=== PATIENT | female | born 1950 | race Caucasian/White ===

== ENCOUNTER 2019-12-02 10:34 | Outpatient (CLI) | payer MEDICARE, SELFPAY ==
[2019-12-02 11:02] LABS: Basophils Percent Auto 0.6 % (0.2-1.2); Eosinophils Absolute Auto 0.1 K/mm3 (0-0.3); Hematocrit 45.2 % (37.0-47.0); Hemoglobin 14.5 g/dL (12.0-15.0); Immature Granulocyte Absolute 0.01 K/mm3 (0.00-0.031); Immature Granulocyte Percent A 0.2 % (0-0.5); Immature Platelet Fraction Pct 4.2 % (0.9-11.2); Lymphocytes Absolute Auto 1.38 K/mm3 (0.9-3.2); Lymphocytes Percent Auto 27.8 % (18.3-44.2); Mean Corpuscular HGB Conc 32.1 g/dl (32-36); Mean Corpuscular Hemoglobin 30.2 pg (26-34); Mean Corpuscular Volume 94.2 fl (80-100); Mean Platelet Volume 11.1 fl (7.4-10.4); Monocytes Absolute Auto 0.6 K/mm3 (0.1-0.6); Monocytes Percent Auto 11.9 % (2.6-8.5); Neutrophils Absolute Auto 2.9 K/mm3 (1.3-6.7); Neutrophils Percent Auto 57.5 % (45.5-73.1); Platelet Count Result 249 k/mm3 (150-375)
[2019-12-02 16:03] LABS: Alanine Aminotransferase 17 U/L (4-35); Albumin Level 4.3 g/dL (3.5-5.1); Alkaline Phosphatase 84 U/L (38-126); Aspartate Amino Transferase 29 U/L (14-36); Bilirubin,Total 0.4 mg/dL (0.2-1.3); Blood Urea Nitrogen 14 mg/dL (7-17); Calcium 9.4 mg/dL (8.4-10.2); Carbon Dioxide 26 mmol/L (22-30); Chloride 103 mmol/L (98-107); Estimated Glomerular Filt Rate > 60; Glucose 85 mg/dL (65-105); Potassium 4.3 mmol/L (3.4-5.0); Sodium 135 mmol/L (137-145)
[2019-12-02 16:25] LABS: Folic Acid 16.9 ng/mL (2.76->20)
== END 2019-12-02 10:35 | disposition home or self-care (01) ==
LOC: ANHLAB 10:36
PROVIDERS: PCP Family Medicine; Visit Provider Physician Assistant
DX: R53.83 Other fatigue (principal); E03.9 Hypothyroidism, unspecified
CPT/HCPCS: 36415; 80053; 82607; 82746; 84443; 85025; 85055

== ENCOUNTER 2020-01-12 10:50 | Outpatient (CLI) | payer MEDICARE, SELFPAY ==
[2020-01-12 11:31] LABS: Blood Urea Nitrogen 15 mg/dL (7-17); Calcium 9.7 mg/dL (8.4-10.2); Carbon Dioxide 29 mmol/L (22-30); Chloride 101 mmol/L (98-107); Estimated Glomerular Filt Rate > 60; Glucose 108 mg/dL (65-105); Potassium 4.1 mmol/L (3.4-5.0); Sodium 137 mmol/L (137-145)
[2020-01-12 12:32] LABS: Thyroid Stimulating Hormone 0.143 uIU/mL (0.465-4.680)
== END 2020-01-12 10:51 | disposition home or self-care (01) ==
PROVIDERS: PCP Family Medicine; Visit Provider Physician Assistant
DX: E03.9 Hypothyroidism, unspecified (principal); E87.6 Hypokalemia
CPT/HCPCS: 36415; 80048; 84443

== ENCOUNTER 2020-02-09 16:01 | Outpatient (CLI) | payer MEDICARE, SELFPAY | END 2020-02-09 16:02 | disposition home or self-care (01) | PROVIDERS: PCP Family Medicine; Visit Provider Physician Assistant | DX: E03.9 Hypothyroidism, unspecified (principal) | CPT/HCPCS: 36415; 84443 ==

== ENCOUNTER 2020-03-31 16:09 | Emergency (ER) | payer MEDICARE, SELFPAY ==
[2020-03-31 16:26] VITALS: BP 150/69; PULSE 85; RESP 20; TEMP 37.3; O2SAT 99
--- NOTE | 2020-03-31 16:39 | ED.FEMALEGU ---
HPI - Female Genitourinary General Chief complaint: Urogenital-Female Stated complaint: uti Time Seen by Provider: 03/31/20 16:37 Source: patient Mode of arrival: ambulatory Limitations: no limitations History of Present Illness HPI Narrative: Patient is a 69-year-old female who presents with complaints of dysuria, incontinence, frequency and urgency x1 week. Patient denies visible hematuria. Patient reports lower back pain starting today. She reports intermittently taking Tylenol and increasing fluid intake without relief. She denies flank pain, fever, nausea or vomiting. MD elicited complaint: UTI Related Data Home Medications Medication Instructions Recorded Confirmed duloxetine 60 mg capsule,delayed 60 mg PO DAILY cap 01/13/20 03/31/20 release Allergies Allergy/AdvReac Type Severity Reaction Status Date / Time Iodinated Contrast Media Allergy Unknown Hives Verified 02/10/20 14:16 Penicillins Allergy Unknown Hives Verified 02/10/20 14:16 Sulfa (Sulfonamide Allergy Unknown rash and Verified 02/10/20 14:16 Antibiotics) eyes swelling Review of Systems Review of Systems: Narrative: CONSTITUTIONAL: Denies fever, chills, or sweats. EYES: Denies visual changes, redness, or discharge. ENT: Denies rhinorrhea, congestion, sore throat, or otalgia. CARDIOVASCULAR: Denies chest pain, palpitations, or edema. RESPIRATORY: Denies cough or dyspnea. GASTROINTESTINAL: Denies abdominal pain, nausea, vomiting, or diarrhea. GENITOURINARY: Reports dysuria, frequency, urgency and incontinence SKIN: Denies rash or itching. MUSCULOSKELETAL: Denies back pain, joint pain, or myalgia. NEUROLOGIC: Denies headache, numbness, dizziness, or weakness. PSYCHIATRIC: Denies anxiety or depression. [facility] Past Medical History Medical History (Updated 03/31/20 @ 16:46 by KATERIN Felix) Elevated blood pressure reading in office without diagnosis of hypertension Essential hypertension Neuropathy Surgical History Surgical History (Updated 03/31/20 @ 16:42 by KATERIN Felix) No significant past surgical history Family History Family History Mother Hypertension Family history of malignant neoplasm of cervix Sibling Hypertension Social History Social History Smoking status: Never smoker Alcohol intake: current Substance use: never Substance use type: does not use Gender identity (if verbalized by the patient): Female Exam Narrative: Exam Narrative: GENERAL: Well-appearing, well-nourished, and in no acute distress. HEAD: Normocephalic, atraumatic. EYES: EOMI. No redness or drainage. CHEST: No respiratory distress. Clear to auscultation. HEART: Regular rate and rhythm. No murmur appreciated. Normal peripheral pulses. GI: Soft, nontender without rebound, or guarding. No distention. Bowel sounds normal in all quadrants. NEURO: No focal deficits. Alert and oriented x3. Gait steady. PSYCH: Normal affect. No signs of depression or anxiety. Course Vital Signs Vital signs: Vital Signs Temperature 37.3 C 03/31/20 16:26 Pulse Rate 85 03/31/20 16:26 Respiratory Rate 20 03/31/20 16:26 Blood Pressure 150/69 H 03/31/20 16:26 Pulse Oximetry 99 03/31/20 16:26 Temperature 37.3 C 03/31/20 16:26 Pulse Rate 85 03/31/20 16:26 Respiratory Rate 20 03/31/20 16:26 Blood Pressure 150/69 H 03/31/20 16:26 Pulse Oximetry 99 03/31/20 16:26 Reviewed. Patient has been instructed to follow-up with her PCP regarding her blood pressure. MDM - Female Genitourinary MDM Narrative Medical decision making narrative: Patient's urine is positive for nitrates, leukocytes and blood. Patient to be treated for UTI at this time, urine culture to be sent. Patient instructed to follow-up with her PCP in 3 to 5 days if symptoms persist. Patient is stable for discharge to home wit
== END 2020-03-31 16:47 | disposition home or self-care (01) ==
PROVIDERS: Emergency Provider Nurse Practitioner; PCP Family Medicine
DX: N39.0 Urinary tract infection, site not specified (principal); G62.9 Polyneuropathy, unspecified; I10 Essential (primary) hypertension
CPT/HCPCS: 81003; 87077; 87086; 87088; 87186; 99213; G0463

== ENCOUNTER 2020-04-09 12:46 | Emergency (ER) | payer MEDICARE, SELFPAY ==
[2020-04-09 13:05] VITALS: BP 139/82; PULSE 86; RESP 20; TEMP 37.1; O2SAT 98
[2020-04-09] MEDS: KETOROLAC (*BKC) 60 MG/2 ML VIAL IM (13:47)
--- NOTE | 2020-04-09 13:48 | ED.FEMALEGU ---
HPI - Female Genitourinary General Chief complaint: Urogenital-Female Stated complaint: uti Source: patient and RN notes reviewed Limitations: no limitations History of Present Illness HPI Narrative: The patient, non-smoker/nondrinker nursing staff member, presents with right side pain. Patient states she was seen for a UTI about a week ago. She was treated with first generation cephalosporin, for culture proven E. coli pansensitive infection. She first had improvement and was seen by her PMD , but now ~2 days after ending the med course, complains of continued urinary frequency, flank pain, urgency and mild end stream dysuria.. No hematuria seen [but she did at onset], fever, vomiting/diarrhea, vaginal discharge. 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 This required extended antibiotic dosing, then. Available POC testing shows 1+ leukocytosis, 2+ microscopic hematuria, 3+ protein, nitrate negative . Discussed will provide second course of antibiotics, and after discussing with her PMD, same-day imaging to be sent to her PMD for same day follow-up. Patient declines go to hospital ER. Related Data Home Medications Medication Instructions Recorded Confirmed duloxetine 60 mg capsule,delayed 60 mg PO DAILY cap 01/13/20 04/09/20 release Allergies Allergy/AdvReac Type Severity Reaction Status Date / Time Iodinated Contrast Media Allergy Unknown Hives Verified 04/09/20 13:06 Penicillins Allergy Unknown Hives Verified 04/09/20 13:06 Sulfa (Sulfonamide Allergy Unknown rash and Verified 04/09/20 13:06 Antibiotics) eyes swelling Review of Systems Review of Systems: Narrative: General/Constitutional: No weight loss,fever Eyes: N0: Redness,discharge Ears/Nose/Throat: No: Epistaxis,ear discharge Respiratory: Denies: Hemoptysis Gastrointestinal: No Vomiting, Bleeding-rectal Skin: No Lumps, eruption Neurologic: No Focal Weakness,Sz Hematologic: Denies: Petechiae/Purpura Psychiatric: No: Suicida ideationl All Other Systems: Reviewed and Negative [facility] Past Medical History Medical History Elevated blood pressure reading in office without diagnosis of hypertension Essential hypertension Neuropathy Surgical History Surgical History No significant past surgical history Family History Family History Mother Hypertension Family history of malignant neoplasm of cervix Sibling Hypertension Social History Social History Smoking status: Never smoker Alcohol intake: current Substance use: never Substance use type: does not use Gender identity (if verbalized by the patient): Female Comments At time of signature, agree with nursing past medical, surgical, social and family history. There is no relevant family history pertinent to the presenting complaint Exam Narrative: Exam Narrative: General Appearance: Well appearing, Conjunctiva clear Mouth/Throat: Normal appearing, Normal lips: Supple Respiratory: Airway patent, No respiratory distress, definite CVAT on right Abdomen: Soft, Non-tender, No massess, No organomegaly (no rebound/ surgical signs), Musculoskeletal: Full ROM Skin: Warm, Dry Neurological: A&O x3, Normal affect Course Vital Signs Vital signs: Vital Signs Temperature 98.8 F 04/09/20 13:05 Pulse Rate 86 04/09/20 13:05 Respiratory Rate 20 04/09/20 13:05 Blood Pressure 139/82 04/09/20 13:05 Pulse Oximetry 98 04/09/20 13:05 Temperature 98.8 F 04/09/20 13:05 Pulse Rate 86 04/09/20 13:05 Respiratory Rate 20 04/09/20 13:05 Blood Pressure 139/82 04/09/20 13:05 Pulse Oximetry 98 04/09/20 13
== END 2020-04-09 13:52 | disposition short-term general hospital (02) ==
LOC: EXPTROY 12:51
PROVIDERS: Emergency Provider Emergency Medicine; PCP Family Medicine
DX: R10.9 Unspecified abdominal pain (principal); I10 Essential (primary) hypertension; G62.9 Polyneuropathy, unspecified; G47.30 Sleep apnea, unspecified; M79.7 Fibromyalgia; E05.90 Thyrotoxicosis, unspecified without thyrotoxic crisis or storm
CPT/HCPCS: 36415; 74176; 80048; 81003; 87077; 87086; 87088; 87186; 96372; 99214; G0463; J1885

== ENCOUNTER 2020-04-09 15:24 | Outpatient (CLI) | payer MEDICARE, SELFPAY ==
--- NOTE | ~2020-04-09 | CT_ITS ---
EXAMINATION: CT abdomen pelvis wo con DATE: 04/09/2020 15:47 INDICATION: Kidney stones with right-sided abdominal pain TECHNIQUE: Computed tomography (CT) of the abdomen and pelvis was performed without intravenous contr ast. Automated exposure control and iterative reconstruction technique were employed. The dose-length product was 1446.89 mGy-cm. COMPARISON: None FINDINGS: Elevation of the left hemidiaphragm. Mild atelectasis in the dependent right lower lobe. Heart size i s normal. No pericardial or pleural effusion. Cholecystectomy clips at the gallbladder fossa. Liver, spleen, pancreas, bilateral adrenal glands and left kidney are normal. Severe right hydronephrosis wi th associated mild hydroureter which extends to the decompressed bladder with no evident obstructing stone or mass. There is right perinephric and periureteral stranding. Mild diverticulosis at the sigm oid colon without adjacent inflammatory change to suggest diverticulitis. No bowel obstruction. Uteru s and bilateral adnexa are unremarkable. Small fat-containing umbilical hernia. No free intraperitone al gas or fluid. No pathologically enlarged abdominal or pelvic lymphadenopathy. Mild thoracolumbar l evocurvature with severe spondylosis. IMPRESSION: 1. Severe right hydronephrosis with transition to relatively mild right hydroureter at the ureteropel concetta junction suspicious for UPJ obstruction without evident obstructing stone or mass. There is mild right perinephric and periureteral stranding and would correlate with urinalysis to exclude associate d ascending urinary tract infection. 2. Mild diverticulosis. 3. Small fat-containing umbilical hernia. Reviewed, dictated and finalized at location B. IMPRESSION: 1. Severe right hydronephrosis with transition to relatively mild right hydrour eter at the ureteropelvic junction suspicious for UPJ obstruction without evide nt obstructing stone or mass. There is mild right perinephric and periureteral stranding and would correlate with urinalysis to exclude associated ascending u rinary tract infection. 2. Mild diverticulosis. 3. Small fat-containing umbilical hernia.
== END 2020-04-09 15:25 | disposition home or self-care (01) ==
PROVIDERS: PCP Family Medicine; Visit Provider Family Medicine
DX: R10.9 Unspecified abdominal pain (principal); N13.30 Unspecified hydronephrosis; K57.90 Diverticulosis of intestine, part unspecified, without perforation or abscess without bleeding
CPT/HCPCS: 74176

== ENCOUNTER 2020-04-09 17:41 | Outpatient (CLI) | payer MEDICARE, SELFPAY ==
[2020-04-09 18:05] LABS: Anion Gap 8 mmol/L (8-16); Blood Urea Nitrogen 16 mg/dL (7-17); Calcium 9.4 mg/dL (8.4-10.2); Carbon Dioxide 29 mmol/L (22-30); Chloride 99 mmol/L (98-107); Estimated Glomerular Filt Rate 55; Glucose 132 mg/dL (65-105); Potassium 3.8 mmol/L (3.4-5.0); Sodium 136 mmol/L (137-145)
== END 2020-04-09 17:42 | disposition home or self-care (01) ==
PROVIDERS: PCP Family Medicine; Visit Provider Physician Assistant
DX: R10.9 Unspecified abdominal pain (principal); N13.30 Unspecified hydronephrosis
CPT/HCPCS: 36415; 80048

== ENCOUNTER 2020-05-03 12:34 | Outpatient (CLI) | payer MEDICARE, SELFPAY ==
--- NOTE | ~2020-05-03 | NM_ITS ---
EXAMINATION: AMANUEL romero renal scan DATE: 05/03/2020 13:42 INDICATION: Right ureteropelvic junction obstruction TECHNIQUE: 8 mCi Tc-99m MAG3 was administered IV. 40 mg furosemide was administered IV immediately a fterward. The patient was scanned in the supine position. A posterior abdominal radionuclide angiogra m was obtained. A subsequent time course of static images of the kidneys, ureters, and bladder was ob tained. COMPARISON: None FINDINGS: The posterior abdominal radionuclide angiogram and sequential static images show normal size, positio n, and morphology of the kidneys. Peak renal parenchymal uptake was 2.5 min in left kidney and 17.5 m in in right kidney (normal peak 3-5 minutes). The relative early renal uptake was 57% on the right a nd 43% on the left (<40% is abnormal). No abnormalities of the ureters or bladder are seen. T1/2 for clearance of activity from the left kidney and proximal collecting system was 12 minutes min utes. T1/2 for clearance of activity from the right kidney and proximal collecting system was aerated +20 m inutes. Notes on interpretation: T1/2 <10 minutes is normal, 10-15 minutes is low grade obstruction of questi onable clinical significance, 15-20 minutes is partial obstruction that is likely clinically signific ant, >20 minutes is high grade obstruction. Note that false positives may be seen with supine positio yonny, dehydration, severely dilated nonobstructed kidney, atonic collecting system, poor renal functi on, and chronic furosemide use. IMPRESSION: 1. Symmetric kidney function. 2. Mildly delayed contrast clearance from the left kidney which is of doubtful significance with no evident hydronephrosis on prior CT. 3. Significantly delayed contrast clearance from the right kidney with associated hydronephrosis cons istent with obstruction which could be high-grade however the relatively symmetric renal function sug gests that some degree of the delay in excretion is likely related to the severely dilated right ry l collecting system. Reviewed, dictated and finalized at location A. [facility] IMPRESSION: 1. Symmetric kidney function. 2. Mildly delayed contrast clearance from the left kidney which is of doubtful significance with no evident hydronephrosis on prior CT. 3. Significantly delayed contrast clearance from the right kidney with associat ed hydronephrosis consistent with obstruction which could be high-grade however the relatively symmetric renal function suggests that some degree of the delay in excretion is likely related to the severely dilated right renal collecting system.
== END 2020-05-03 12:35 | disposition home or self-care (01) ==
PROVIDERS: PCP Family Medicine; Visit Provider Urology
DX: N13.5 Crossing vessel and stricture of ureter without hydronephrosis (principal); N13.30 Unspecified hydronephrosis
CPT/HCPCS: 78708; A9562; J1940

== ENCOUNTER 2020-08-07 16:55 | Outpatient (CLI) | payer MEDICARE, SELFPAY ==
[2020-08-07 18:15] LABS: Add Urine Microscopic? YES; Appearance Urine Cloudy (Clear); Bacteria Urine Trace /hpf; Bilirubin Urine Negative (Negative); Blood Urine 1+ (Negative); Color Urine Yellow (Yellow); Glucose Urine UA Negative (Negative); Ketones Urine Negative (Negative); Leukocyte Esterase Ur 3+ LEU/UL (NEGATIVE); Mucus Urine Rare /lpf; Nitrate Urine Negative (Negative); Protein Urine Negative (Negative); Specific Grav Ur 1.014 (1.001-1.035); Squamous Epithelial Cell Urine Many /hpf (Few); Urobilinogen Urine Negative mg/dL (<2.0); WBC Urine >75 /hpf (0-3)
== END 2020-08-07 16:56 | disposition home or self-care (01) ==
LOC: ANHLAB 16:56
PROVIDERS: PCP Family Medicine; Visit Provider Nurse Practitioner Family
DX: N39.0 Urinary tract infection, site not specified (principal)
CPT/HCPCS: 81001; 87077; 87086; 87088; 87186

== ENCOUNTER 2020-08-31 20:02 | Emergency (ER) | payer MEDICARE, SELFPAY ==
[2020-08-31 20:17] VITALS: BP 147/81; PULSE 103; RESP 18; TEMP 36.4; O2SAT 98
--- NOTE | 2020-08-31 20:45 | ED.GENADULT ---
HPI - General Adult General Chief complaint: Abdominal Pain Stated complaint: flank pain, being treated for UTI Time Seen by Provider: 08/31/20 20:24 History of Present Illness HPI narrative: Patient is a 69-year-old female who presents ER with right flank pain. Ongoing over the last week. Patient had taken a 5-day course of ciprofloxacin after having milky white urine. Symptoms persisted and she followed up with [facility] in the urology clinic and received Levaquin. Patient reports she has persistent flank pain and has been having fevers. Most recent fever was 38.3?C this evening. She took Tylenol which improved the fever but did not improve her pain. Patient feels like she is no longer urinating as well and is dehydrated. She has had no dysuria. Patient has known hydronephrosis of the right kidney due to an obstruction and she is working with the urology team to manage this. She is supposed to have surgery in the near future. Related Data Home Medications Medication Instructions Recorded Confirmed duloxetine 60 mg capsule,delayed 60 mg PO DAILY cap 01/13/20 04/09/20 release Allergies Allergy/AdvReac Type Severity Reaction Status Date / Time Iodinated Contrast Media Allergy Unknown Hives Verified 08/31/20 23:17 Penicillins Allergy Unknown Hives Verified 08/31/20 23:17 Sulfa (Sulfonamide Allergy Unknown rash and Verified 08/31/20 23:17 Antibiotics) eyes swelling Review of Systems Review of Systems: All systems reviewed & are unremarkable except as noted in HPI and below Constitutional: Constitutional: Reports chills, Reports fever(s) and Denies weakness ENT: Denies nasal congestion and Denies sore throat Respiratory: Respiratory: Denies cough and Denies dyspnea Gastrointestinal: Gastrointestinal: Denies abdominal pain, Denies diarrhea, Denies nausea and Denies vomiting Genitourinary: Genitourinary: Denies nocturia, Denies dysuria and Reports flank pain PMFSH Past Medical History Medical History Elevated blood pressure reading in office without diagnosis of hypertension Essential hypertension Neuropathy Surgical History Surgical History No significant past surgical history Family History Family History Mother Hypertension Family history of malignant neoplasm of cervix Sibling Hypertension Social History Social History (Updated 04/18/20 @ 11:30 by Latonya Rubi) Smoking status: Never smoker Second hand tobacco smoke exposure: No Alcohol intake: current Substance use: never Substance use type: does not use Gender identity (if verbalized by the patient): Female Exam Narrative: Exam Narrative: GENERAL: Well-appearing, well-nourished, and in no acute distress. HEAD: Normocephalic, atraumatic. ENT: Mucous membranes moist. CHEST: Clear to auscultation. No respiratory distress. HEART: Regular rate and rhythm. Normal peripheral pulses. ABDOMEN: Soft, nontender, nondistended. No CVA tenderness. EXTREMITIES: Normal range of motion. Normal ambulation from room to bathroom. NEURO: Alert and oriented x3. PSYCH: Normal mood and affect. Course Course Emergency Course: Discussed case with Dr. Lundberg. Patient will receive 1 g of vancomycin in the ER and then be placed on nitrofurantoin for home. Previous urine culture with Enterococcus that was sensitive to both of these medications. Patient has no white count and is comfortable here. Feels comfortable with plan. Discharge after antibiotics. Vital Signs Vital signs: Vital Signs Temperature 97.5 F L 08/31/20 20:17 Pulse Rate 103 H 08/31/20 20:17 Respiratory Rate 18 08/31/20 20:17 Blood Pressure 147/81 H 08/31/20 20:17 Pulse Oximetry 98 08/31/20 20:17 Temperature 97.5 F L 08/31/20 20:17 Pulse Rate 94 08/31/20 23:19 Respiratory Rate
[2020-08-31] MEDS: SODIUM CHLORIDE 0.9% IV 1,000 ML 999 ML IV CONT (21:40)
[2020-08-31 21:43] LABS: Basophils Percent Auto 0.2 % (0.2-1.2); Eosinophils Absolute Auto 0.1 K/mm3 (0-0.3); Eosinophils Percent Auto 1.3 % (0-4.4); Hematocrit 37.8 % (37.0-47.0); Hemoglobin 11.8 g/dL (12.0-15.0); Immature Granulocyte Absolute 0.02 K/mm3 (0.00-0.031); Immature Granulocyte Percent A 0.2 % (0-0.5); Lymphocytes Absolute Auto 1.54 K/mm3 (0.9-3.2); Lymphocytes Percent Auto 18.4 % (18.3-44.2); Mean Corpuscular HGB Conc 31.2 g/dl (32-36); Mean Corpuscular Hemoglobin 28.8 pg (26-34); Mean Corpuscular Volume 92.2 fl (80-100); Mean Platelet Volume 10.3 fl (7.4-10.4); Monocytes Percent Auto 12.5 % (2.6-8.5); Neutrophils Absolute Auto 5.6 K/mm3 (1.3-6.7); Neutrophils Percent Auto 67.4 % (45.5-73.1); Platelet Count Result 222 k/mm3 (150-375); Red Cell Distribution Width 12.8 % (11.5-14.5); White Blood Count 8.4 K/mm3 (4.5-10.0)
[2020-08-31 22:02] LABS: Anion Gap 1 mmol/L (8-16); Blood Urea Nitrogen 13 mg/dL (7-17); Calcium 8.4 mg/dL (8.4-10.2); Carbon Dioxide 29 mmol/L (22-30); Chloride 104 mmol/L (98-107); Estimated CRCL calculation 64 ml/min; Estimated Glomerular Filt Rate > 60; Glucose 107 mg/dL (65-105); Potassium 3.5 mmol/L (3.4-5.0); Sodium 134 mmol/L (137-145)
[2020-08-31 22:35] LABS: Add Urine Microscopic? YES; Appearance Urine Turbid (Clear); Bacteria Urine 3+ /hpf; Bilirubin Urine Negative (Negative); Blood Urine 2+ (Negative); Color Urine Yellow (Yellow); Glucose Urine UA Negative (Negative); Ketones Urine Negative (Negative); Leukocyte Esterase Ur 3+ LEU/UL (Negative); Mucus Urine Few /lpf; Nitrate Urine Negative (Negative); Protein Urine 2+ mg/dL (Negative); Specific Grav Ur 1.013 (1.001-1.035); Squamous Epithelial Cell Urine Many /hpf (Few); WBC Urine >75 /hpf
[2020-08-31] MEDS: MORPHINE SULFATE (*CRX) 4 MG/ML INJ IV PUSH (22:35)
[2020-08-31 23:19] VITALS: BP 158/110; PULSE 94; RESP 16; O2SAT 100
[2020-08-31] MEDS: NITROFURANTOIN MONOHYD MACROCR 100 MG CAP PO (23:23)
[2020-09-01 00:57] VITALS: BP 168/73; PULSE 89; RESP 20; O2SAT 96
== END 2020-09-01 00:59 | disposition home or self-care (01) ==
PROVIDERS: Emergency Provider Emergency Medicine; PCP Family Medicine
DX: N39.0 Urinary tract infection, site not specified (principal); I10 Essential (primary) hypertension; G62.9 Polyneuropathy, unspecified
CPT/HCPCS: 36415; 80048; 81001; 85025; 87077; 87086; 87088; 87186; 96361; 96365; 96375; 99284; A9270; J2270; J3370; J7030

== ENCOUNTER 2020-09-13 16:02 | Outpatient (CLI) | payer MEDICARE, SELFPAY | END 2020-09-13 16:03 | disposition home or self-care (01) | PROVIDERS: PCP Family Medicine; Visit Provider Urology | DX: N39.0 Urinary tract infection, site not specified (principal) | CPT/HCPCS: 87086 ==

== ENCOUNTER 2020-10-01 10:31 | Outpatient (CLI) | payer MEDICARE, SELFPAY ==
[2020-10-01 10:57] LABS: Basophils Percent Auto 0.6 % (0.2-1.2); Eosinophils Absolute Auto 0.1 K/mm3 (0-0.3); Eosinophils Percent Auto 2.5 % (0-4.4); Hematocrit 42.6 % (37.0-47.0); Hemoglobin 13.5 g/dL (12.0-15.0); Immature Granulocyte Absolute 0.01 K/mm3 (0.00-0.031); Immature Granulocyte Percent A 0.2 % (0-0.5); Lymphocytes Percent Auto 30.7 % (18.3-44.2); Mean Corpuscular HGB Conc 31.7 g/dl (32-36); Mean Corpuscular Hemoglobin 29.3 pg (26-34); Mean Corpuscular Volume 92.4 fl (80-100); Mean Platelet Volume 10.3 fl (7.4-10.4); Monocytes Absolute Auto 0.7 K/mm3 (0.1-0.6); Monocytes Percent Auto 13.7 % (2.6-8.5); Neutrophils Absolute Auto 2.6 K/mm3 (1.3-6.7); Neutrophils Percent Auto 52.3 % (45.5-73.1); Platelet Count Result 209 k/mm3 (150-375); Red Blood Count 4.61 M/mm3 (4.2-5.4); Red Cell Distribution Width 13.1 % (11.5-14.5); White Blood Count 4.9 K/mm3 (4.5-10.0)
[2020-10-01 11:00] LABS: Add Urine Microscopic? YES; Appearance Urine Cloudy (Clear); Bilirubin Urine Negative (Negative); Blood Urine Negative (Negative); Color Urine Yellow (Yellow); Glucose Urine UA Negative (Negative); Ketones Urine Negative (Negative); Leukocyte Esterase Ur 1+ LEU/UL (NEGATIVE); Mucus Urine Rare /lpf; Nitrate Urine Negative (Negative); Protein Urine Negative (Negative); Specific Grav Ur 1.016 (1.001-1.035); Squamous Epithelial Cell Urine Moderate /hpf (Few); Urobilinogen Urine Negative mg/dL (<2.0); WBC Urine 31-50 /hpf (0-3)
[2020-10-01 11:12] LABS: Alanine Aminotransferase 20 U/L (4-35); Albumin Level 4.1 g/dL (3.5-5.1); Alkaline Phosphatase 86 U/L (38-126); Anion Gap 5 mmol/L (8-16); Aspartate Amino Transferase 29 U/L (14-36); Bilirubin,Total 0.6 mg/dL (0.2-1.3); Blood Urea Nitrogen 17 mg/dL (7-17); Calcium 9.2 mg/dL (8.4-10.2); Carbon Dioxide 29 mmol/L (22-30); Chloride 105 mmol/L (98-107); Cholesterol 197 mg/dL (0-200); Estimated Glomerular Filt Rate > 60; Glucose 96 mg/dL (65-105); HDL Direct 55 mg/dL; Potassium 4.2 mmol/L (3.4-5.0); Sodium 139 mmol/L (137-145); Triglycerides 160 mg/dL (<150)
[2020-10-01 11:23] LABS: LDL Cholesterol Direct 90 mg/dL
[2020-10-01 11:45] LABS: Thyroid Stimulating Hormone < 0.015 uIU/mL (0.465-4.680)
== END 2020-10-01 10:32 | disposition home or self-care (01) ==
PROVIDERS: PCP Family Medicine; Visit Provider Nurse Practitioner Family
DX: E78.2 Mixed hyperlipidemia (principal); R32 Unspecified urinary incontinence; Z00.00 Encounter for general adult medical examination without abnormal findings; I10 Essential (primary) hypertension
CPT/HCPCS: 36415; 80053; 80061; 81001; 84443; 85025

== ENCOUNTER 2020-10-09 09:38 | Outpatient (CLI) | payer MEDICARE, SELFPAY ==
--- NOTE | ~2020-10-09 | CT_ITS ---
EXAMINATION: CT abdomen pelvis wo/w con DATE: 10/09/2020 10:19 INDICATION: Ureteropelvic junction obstruction TECHNIQUE: Computed tomography (CT) of the abdomen and pelvis was performed without intravenous contr ast. CT of the abdomen and pelvis was then performed with a total of 130 mL Omnipaque 350 intravenous contrast using a double-bolus technique for simultaneous opacification of the renal parenchyma and r enal collecting system. The dose-length product (DLP) was 2797.14 mGy-cm. Automated exposure control and iterative reconstruction technique were employed. COMPARISON: 04/09/2020 FINDINGS: Minimal dependent atelectasis is present in the lung bases. The heart size is normal. The g allbladder is surgically absent. The liver, spleen, pancreas, and adrenal glands are normal. The left kidney is unremarkable. There is unchanged severe hydronephrosis of the right kidney with a transiti on at the ureteropelvic junction. There is old contrast material in the dilated renal pelvis without significant contrast opacification of the right ureter. No suspicious renal or urothelial lesion is i dentified. No stones are present in the kidneys, ureters, or bladder. No pathologically enlarged abdo wendy or pelvic lymph nodes are identified. There is no free intraperitoneal gas or evidence of bowel obstruction. There is severe thoracic and lumbar spondylosis. A small fat-containing umbilical abimael ia is noted. IMPRESSION: 1. Right ureteropelvic junction obstruction with severe right hydronephrosis. Reviewed, dictated and finalized at location B.
== END 2020-10-09 09:39 | disposition home or self-care (01) ==
PROVIDERS: PCP Family Medicine; Visit Provider Urology
DX: N13.5 Crossing vessel and stricture of ureter without hydronephrosis (principal)
CPT/HCPCS: 74178; Q9967

== ENCOUNTER 2020-12-24 11:05 | Outpatient (CLI) | payer MEDICARE, SELFPAY | END 2020-12-24 11:06 | disposition home or self-care (01) | PROVIDERS: PCP Family Medicine; Visit Provider Physician Assistant | DX: E78.2 Mixed hyperlipidemia (principal); E03.9 Hypothyroidism, unspecified | CPT/HCPCS: 36415; 84443 ==

== ENCOUNTER 2021-02-11 12:49 | Outpatient (CLI) | payer MEDICARE, SELFPAY ==
--- NOTE | ~2021-02-11 | NM_ITS ---
EXAMINATION: AMANUEL romero renal scan DATE: 02/12/2021 07:33 INDICATION: Right ureteropelvic junction obstruction TECHNIQUE: 7.5 mCi Tc-99m MAG3 was administered IV. 40 mg furosemide was administered IV immediately afterward. The patient was scanned in the supine position. A posterior abdominal radionuclide angiog hung was obtained. A subsequent time course of static images of the kidneys, ureters, and bladder was obtained. COMPARISON: None FINDINGS: The posterior abdominal radionuclide angiogram and sequential static images show normal size and posi tion of the kidneys. The dilated right renal pelvis which extends inferiorly from the right renal hil um begins to opacify on the 4 minute image prominent activity persisting throughout the remainder of imaging. Peak renal parenchymal uptake was 1.6 min in left kidney and 8.4 min in right kidney (normal peak 3-5 minutes). The relative early renal uptake was 50% on the left and 50% on the right (<40% i s abnormal). No abnormalities of the ureters or bladder are seen. T1/2 for clearance of activity from the left kidney and proximal collecting system was 4.8 minutes. T1/2 for clearance of activity from the right kidney and proximal collecting system was 27.1 minutes. Notes on interpretation: T1/2 <10 minutes is normal, 10-15 minutes is low grade obstruction of questi onable clinical significance, 15-20 minutes is partial obstruction that is likely clinically signific ant, >20 minutes is high grade obstruction. Note that false positives may be seen with supine positio yonny, dehydration, severely dilated nonobstructed kidney, atonic collecting system, poor renal functi on, and chronic furosemide use. IMPRESSION: 1. Symmetric kidney function. 2. Significantly delayed activity clearance from the right kidney likely due primarily to the severe ly dilated right renal pelvis rather than a functionally severe obstruction given that the early ry l activity has remained symmetric with the contralateral left kidney despite what is likely a chronic UPJ obstruction with the renal pelvis similarly dilated on CT dated 04/09/2020. Also arguing against significant functional obstruction is the absence of significant right renal cortical atrophy and wi th similar amounts of contrast excretion from each kidney seen on the post contrast imaging dated 09/27. Reviewed, dictated and finalized at location A. IMPRESSION: 1. Symmetric kidney function. 2. Significantly delayed activity clearance from the right kidney likely due p rimarily to the severely dilated right renal pelvis rather than a functionally severe obstruction given that the early renal activity has remained symmetric w ith the contralateral left kidney despite what is likely a chronic UPJ obstruct ion with the renal pelvis similarly dilated on CT dated 04/09/2020. Also arguin g against significant functional obstruction is the absence of significant righ t renal cortical atrophy and with similar amounts of contrast excretion from ea ch kidney seen on the post contrast imaging dated 10/09/2020.
== END 2021-02-11 12:50 | disposition home or self-care (01) ==
LOC: ANHIMG 12:54
PROVIDERS: PCP Family Medicine; Visit Provider Urology
DX: N13.5 Crossing vessel and stricture of ureter without hydronephrosis (principal)
CPT/HCPCS: 78708; A9562; J1940

== ENCOUNTER 2021-04-26 12:37 | Outpatient (CLI) | payer MEDICARE, SELFPAY ==
[2021-04-26 13:41] LABS: Alanine Aminotransferase 36 U/L (4-35); Albumin Level 4.1 g/dL (3.5-5.1); Alkaline Phosphatase 88 U/L (38-126); Anion Gap 7 mmol/L (8-16); Aspartate Amino Transferase 40 U/L (14-36); Bilirubin,Total 0.7 mg/dL (0.2-1.3); Blood Urea Nitrogen 20 mg/dL (7-17); Calcium 9.2 mg/dL (8.4-10.2); Carbon Dioxide 27 mmol/L (22-30); Chloride 105 mmol/L (98-107); Estimated Glomerular Filt Rate > 60; Glucose 90 mg/dL (65-110); Sodium 139 mmol/L (137-145)
[2021-04-26 14:09] LABS: Thyroid Stimulating Hormone 0.383 uIU/mL (0.465-4.680)
== END 2021-04-26 12:38 | disposition home or self-care (01) ==
LOC: ANHLAB 12:41
PROVIDERS: PCP Family Medicine; Visit Provider Family Medicine
DX: E03.9 Hypothyroidism, unspecified (principal); I10 Essential (primary) hypertension
CPT/HCPCS: 36415; 80053; 84443

== ENCOUNTER 2021-06-27 11:01 | Outpatient (CLI) | payer MEDICARE, SELFPAY ==
[2021-06-27 12:16] LABS: Alanine Aminotransferase 31 U/L (4-35); Albumin Level 4.5 g/dL (3.5-5.1); Alkaline Phosphatase 109 U/L (38-126); Anion Gap 12 mmol/L (8-16); Aspartate Amino Transferase 39 U/L (14-36); Bilirubin,Total 0.7 mg/dL (0.2-1.3); Blood Urea Nitrogen 22 mg/dL (7-17); Calcium 10.4 mg/dL (8.4-10.2); Carbon Dioxide 24 mmol/L (22-30); Chloride 98 mmol/L (98-107); Estimated Glomerular Filt Rate > 60; Glucose 92 mg/dL (65-110); Iron 84 ug/dL (37-170); Potassium 4.2 mmol/L (3.4-5.0); Sodium 134 mmol/L (137-145)
[2021-06-27 12:25] LABS: Percent Iron Saturation 25 % (20-50)
[2021-06-27 12:49] LABS: Hepatitis B Surface Antigen Negative (Negative)
[2021-06-27 12:54] LABS: HAV RESULT Negative (Negative); Hepatitis B Core IgM Result Negative (Negative)
[2021-06-27 13:06] LABS: Hepatitis C Virus Antibody Negative (Negative)
== END 2021-06-27 11:02 | disposition home or self-care (01) ==
PROVIDERS: PCP Family Medicine; Visit Provider Physician Assistant
DX: E03.9 Hypothyroidism, unspecified (principal); R79.89 Other specified abnormal findings of blood chemistry; R94.5 Abnormal results of liver function studies
CPT/HCPCS: 36415; 80053; 80074; 82728; 83540; 83550; 84443; 86038

== ENCOUNTER 2021-12-13 07:39 | Outpatient (CLI) | payer MEDICARE, SELFPAY ==
[2021-12-13 08:52] LABS: Anion Gap 6 mmol/L (8-16); Blood Urea Nitrogen 22 mg/dL (7-17); Calcium 8.9 mg/dL (8.4-10.2); Carbon Dioxide 25 mmol/L (22-30); Chloride 104 mmol/L (98-107); Estimated Glomerular Filt Rate > 60; Glucose 94 mg/dL (65-110); Potassium 4.3 mmol/L (3.4-5.0); Sodium 135 mmol/L (137-145)
== END 2021-12-13 07:40 | disposition home or self-care (01) ==
PROVIDERS: PCP Family Medicine; Visit Provider Nurse Practitioner Adult Health
DX: N30.20 Other chronic cystitis without hematuria (principal)
CPT/HCPCS: 36415; 80048

== ENCOUNTER 2022-02-13 10:21 | Emergency (ER) | payer MEDICARE, SELFPAY ==
--- NOTE | ~2022-02-13 | CT_ITS ---
EXAMINATION: CT facial bones wo con DATE: 02/13/2022 10:57 INDICATION: Facial pain, head injury TECHNIQUE: Computed tomography (CT) of the facial bones and maxillofacial region was performed withou t intravenous contrast. The dose-length product (DLP) was 465.65 mGy-cm. Automated exposure control a nd iterative reconstruction technique were employed. COMPARISON: None. FINDINGS: There are acute, mildly comminuted fractures of the nasal bones. The anterior nasal septum is also fractured. No additional fracture is identified. The globes and orbits are normal. The [place] sinuses are well aerated. There is anterior soft tissue swelling of the face near the nose. There is moderate to severe spondylosis of the visualized cervical spine. IMPRESSION: 1. Mildly comminuted fractures of the nasal bones and fracture of the anterior nasal septum. Reviewed, dictated and finalized at location A.
--- NOTE | ~2022-02-13 | CT_ITS ---
EXAMINATION: CT brain wo con INDICATION: Head injury COMPARISON: None TECHNIQUE: Standard unenhanced head CT. The dose-length product (DLP) was 605.33 mGy-cm. The mA was a djusted according to patient size. Iterative reconstruction technique was employed. FINDINGS: There are bilateral nasal bone fractures. There is no acute intraparenchymal hemorrhage. No evidence of mass lesion. No evidence of acute infarction. There is mild periventricular and subcorti min hypodensity probably related to small vessel ischemic disease. There is mild prominence of the blanca lci and ventricles related to cerebral atrophy. Intracranial calcified cerebral atherosclerosis is no isiah. There are no extra-axial collections. There is no mass effect or midline shift. The orbits are u nremarkable. The visualized sinuses and mastoid air cells are well aerated. IMPRESSION: 1. No acute intracranial abnormality. 2. Age related findings. 3. Bilateral nasal bone fractures. Reviewed, dictated and finalized at location A.
[2022-02-13 10:32] VITALS: BP 135/66; PULSE 88; RESP 16; TEMP 36.7; O2SAT 96
--- NOTE | 2022-02-13 10:44 | ED.FALL ---
HPI - Fall General Chief Complaint: Fall <ANNIA Garcia Last Filed: 02/13/22 11:22> Stated Complaint: nose injury <ANNIA Garcia Last Filed: 02/13/22 11:22> Time Seen by Provider: 02/13/22 10:36 <ANNIA Garcia Last Filed: 02/13/22 11:22> Source: patient <ANNIA Garcia Last Filed: 02/13/22 11:22> Mode of arrival: ambulatory <ANNIA Garcia Last Filed: 02/13/22 11:22> Limitations: no limitations <ANNIA Garcia Last Filed: 02/13/22 11:22> History of Present Illness HPI Narrative: This is a 71-year-old female that presents to the emergency department after a fall today with head injury. Reports she was walking down the steps and missed the last step. This caused her to trip and fall forward and hit her head on a rock. Reports bruising and swelling to her nose. She did not lose consciousness. Denies neck pain. Denies vomiting, numbness, or weakness. <ANNIA Garcia Last Filed: 02/13/22 11:22> Related Data Home Medications: Home Medications Medication Instructions Recorded Confirmed trimethoprim 100 mg tablet 100 mg PO DAILY 10/07/21 04 <ANNIA Garcia Last Filed: 02/13/22 11:22> Allergies/Adverse Reactions: Allergies Allergy/AdvReac Type Severity Reaction Status Date / Time Iodinated Contrast Media Allergy Unknown Hives Verified 02/13/22 10:35 Penicillins Allergy Unknown Hives Verified 02/13/22 10:35 Sulfa (Sulfonamide Allergy Unknown rash and Verified 02/13/22 10:35 Antibiotics) eyes swelling <ANNIA Garcia Last Filed: 02/13/22 11:22> Review of Systems Review of Systems: CONSTITUTIONAL: Denies fever GASTROINTESTINAL: Denies vomiting NEUROLOGIC: Denies numbness, or weakness. <ANNIA Garcia Last Filed: 02/13/22 11:22> All systems reviewed & are unremarkable except as noted in HPI and below <Malena Simmons PA-C - Last Filed: 02/13/22 11:22> [facility] Past Medical History Medical History: Medical History Elevated blood pressure reading in office without diagnosis of hypertension Essential hypertension Neuropathy <Malena Simmons PA-C - Last Filed: 02/13/22 11:22> Surgical History Surgical History: Surgical History No significant past surgical history <Malena Simmons PA-C - Last Filed: 02/13/22 11:22> Family History Family History: Family History Mother Hypertension Family history of malignant neoplasm of cervix Sibling Hypertension <Malena Simmons PA-C - Last Filed: 02/13/22 11:22> Social History Social History: Social History Social History: Smoking status: Never smoker Second hand tobacco smoke exposure: No Alcohol intake: former Alcohol use details: rare Substance use: never Substance use type: does not use Gender identity (if verbalized by the patient): Female Sexual Orientation (if Verbalized by the Patient): Straight or Heterosexual <Malena Simmons PA-C - Last Filed: 02/13/22 11:22> Exam Narrative: GENERAL: Well-appearing, well-nourished, and in no acute distress. HEAD: Normocephalic. Moderate bruising and swelling noted to the nose with superficial abrasion EYES: PERRLA and EOMI. ENT: Nares clear, no rhinorrhea or epistaxis. Mucous membranes moist. Oropharynx without tonsillar hypertrophy exudate or other lesions. Bilateral TMs pearly thapa non-bulging NECK: Supple. No adenopathy or masses. No midline spinal tenderness CHEST: Clear to auscultation. No respiratory distress. No wheezes rales or rhonchi HEART: Regular rate and rhythm. No murmur heard. Normal peripheral pulses. BACK: No midline thoracic or lumbar spine tenderness EXTREMITIES: Normal range of mo
== END 2022-02-13 11:28 | disposition home or self-care (01) ==
PROVIDERS: Emergency Provider Emergency Medicine; PCP Family Medicine
DX: S02.2XXA Fracture of nasal bones, initial encounter for closed fracture (principal); S01.21XA Laceration without foreign body of nose, initial encounter; W10.9XXA Fall (on) (from) unspecified stairs and steps, initial encounter
CPT/HCPCS: 12011; 70450; 70486; 99284

== ENCOUNTER 2022-10-15 10:10 | Outpatient (CLI) | payer MEDICARE, SELFPAY ==
--- NOTE | ~2022-10-15 | NM_ITS ---
EXAMINATION: NM lasix renal scan DATE: 10/15/2022 12:15 INDICATION: Obstruction of the right ureteropelvic junction TECHNIQUE: 7.8 mCi Tc-99m MAG3 was administered IV. 40 mg furosemide was administered IV immediately afterward. The patient was scanned in the supine position. A posterior abdominal radionuclide angiog hung was obtained. A subsequent time course of static images of the kidneys, ureters, and bladder was obtained. COMPARISON: Lasix renal scan dated 02/11/[address] dated 10/12/2020 FINDINGS: The posterior abdominal radionuclide angiogram and sequential static images show normal size, positio n, and morphology of the left kidney. Normal in position and size of the right kidney but with a more horizontal orientation and photopenic defect at the hilum corresponding to the enlarged renal pelvis as seen on prior CT. Activity begins to accumulate in the dilated right renal pelvis on the 2 minute images. Peak renal parenchymal uptake was 2.5 min in left kidney and 4.5 min in right kidney (normal peak 3-5 minutes). The relative early renal uptake was 57% on the left and 42% on the right (<40% i s abnormal). No abnormalities of the ureters or bladder are seen. T1/2 for clearance of activity from the left kidney and proximal collecting system was 3 minutes. T1/2 for clearance of activity from the right kidney and proximal collecting system was 22 minutes. Notes on interpretation: T1/2 <10 minutes is normal, 10-15 minutes is low grade obstruction of questi onable clinical significance, 15-20 minutes is partial obstruction that is likely clinically signific ant, >20 minutes is high grade obstruction. Note that false positives may be seen with supine positio yonny, dehydration, severely dilated nonobstructed kidney, atonic collecting system, poor renal functi on, and chronic furosemide use. IMPRESSION: 1. Slight asymmetry to the kidney function which remains within normal limits with left kidney contr ibuting 57% and right kidney 42% to total renal activity. 2. Slight improvement in still significant delay of activity clearance from the right kidney with T1 /2 decreased from 27 -> 22 minutes which would still be consistent with a high-grade obstruction alth ough as previously detailed is likely due in large part to the severely dilated right renal pelvis. T his likely results in overestimation of the severity of any obstruction. Reviewed, dictated and finalized at location A. IMPRESSION: 1. Slight asymmetry to the kidney function which remains within normal limits with left kidney contributing 57% and right kidney 42% to total renal activity. 2. Slight improvement in still significant delay of activity clearance from th e right kidney with T1/2 decreased from 27 -> 22 minutes which would still be c onsistent with a high-grade obstruction although as previously detailed is like ly due in large part to the severely dilated right renal pelvis. This likely re sults in overestimation of the severity of any obstruction.
== END 2022-10-15 10:11 | disposition home or self-care (01) ==
PROVIDERS: Visit Provider Urology
DX: N13.5 Crossing vessel and stricture of ureter without hydronephrosis (principal)
CPT/HCPCS: 78708; A9562; J1940